=== PATIENT | female | born 1995 | race Caucasian/White ===

== ENCOUNTER 2018-04-25 20:27 | Emergency (ER) | payer OTHER ==
[2018-04-25 20:33] VITALS: BP 119/59; PULSE 100; RESP 18; TEMP 97.4; O2SAT 100
[2018-04-25] MEDS ORDERED: INSU100V2 SQ (20:44)
--- NOTE | 2018-04-25 20:48 | PD ---
HPI Chief Complaint: Complaint Time Seen by Provider: 20:38 Travel History International Travel<30 days: No Contact w/Intl Traveler<30days: No Traveled to known affect area: No History of Present Illness HPI 22-year-old white female presents emergency department with a 3-day history of urinary frequency, urinary pressure followed by right flank tenderness. Patient is insulin-dependent diabetic on insulin pump. She has noted in the last 24 hours that her sugars have been elevated. She denies any fever chills. No nausea or vomiting. No abdominal pain. No vaginal complaints. No abnormal bleeding or discharging. She states that she has a history of irregular periods and has not had one in several months. Symptoms are mild. No alleviating factors. No exacerbating factors. PFSH Past Medical History Narrative Medical IDDM on insulin pump Diabetes: Yes (TYPE 1) Patient Takes Glucophage: No Tetanus Vaccination: < 5 Years ?: Not Past Surgical History Surgical History: No Previous Surgery Social History Alcohol Use: No Tobacco Use: No Substance Use: No Allergies-Medications (Allergen,Severity, Reaction): Coded Allergies: Penicillins (Verified Allergy, Unknown, 04/25/18) Reported Meds & Prescriptions Reported Meds & Active Scripts Active Macrobid (Nitrofurantoin Monoh/Nitrofur Macro) 100 Mg Cap 100 Mg PO BID 7 Days Pyridium (Phenazopyridine HCl) 100 Mg Tab 100 Mg PO Q8H PRN 3 Days Reported Humulin R Inj (Insulin Human Regular) 1,000 Unit/10 Ml Vial 1 Units SQ ONCE Review of Systems General / Constitutional: No: Fever Eyes: No: Visual changes HENT: No: Headaches Cardiovascular: No: Chest Pain or Discomfort Respiratory: No: Shortness of Breath Gastrointestinal: No: Abdominal Pain Genitourinary: Positive: Frequency, Dysuria, Flank Pain, No: Discharge, Dysmenorrhea, Vaginal Bleeding Musculoskeletal: No: Arthralgias, Pain Skin: No Rash Neurologic: No: Weakness Psychiatric: No: Depression Endocrine: No: Polydipsia Hematologic/Lymphatic: No: Easy Bruising Physical Exam Narrative GENERAL: Well-developed, well-nourished in no acute distress. Nontoxic appearing. HEAD: Normocephalic, atraumatic. EYES: Pupils equal round and reactive. Extraocular motions intact. No scleral icterus. No injection or drainage. ENT: TMs clear without erythema. The external auditory canals clear. Nose: clear . Posterior pharynx is pink and moist. No tonsillar edema or exudate. Uvula midline. Airway patent. NECK: Trachea midline.Supple, nontender, moves head freely. No central bony tenderness or spasm. CARDIOVASCULAR: Regular rate and rhythm without murmurs, gallops, or rubs. RESPIRATORY: Clear to auscultation. Breath sounds equal bilaterally. No wheezes , rales, or rhonchi. GASTROINTESTINAL: Abdomen soft, non-tender, nondistended. No hepato-splenomegaly , or palpable masses. No guarding. EXTREMITIES: No clubbing, cyanosis, or edema. No joint tenderness, effusion, or edema noted. BACK: Nontender without deformity or crepitance. No flank tenderness. Data Data Last Documented VS Vital Signs Date Time Temp Pulse Resp B/P (MAP) Pulse Ox O2 Delivery O2 Flow Rate FiO2 04/25/18 20:33 97.4 100 18 119/59 (79) 100 Orders Orders Urinalysis - C+S If Indicated (04/25/18 20:44) Ed Urine Pregnancytest Poc (04/25/18 20:44) Urine Culture (04/25/18 20:47) Nitrofurantoin Monohyd Macrocr (Macrobid (04/25/18 21:45) Ed Discharge Order (04/25/18 21:37) Labs Laboratory Tests Test 04/25/18 20:47 Urine Color LIGHT-YELLOW Urine Turbidity HAZY Urine pH 6.0 Urine Specific [place] 1.004 Urine Protein NEG mg/dL Urine Glucose (UA) NEG mg/dL Urine Ketones NEG mg/dL Urine Occult Blood TRACE Urine Nitrite NEG Urine Bilirubin NEG Urine Urobilinogen LESS THAN 2.0 MG/DL Urine Leukocyte Esterase LARGE Urine RBC 2 /hpf Urine WBC 34 /hpf Urine Bacteria OCC /hpf Microscopic Urinalysis Comment CULTURE INDICATED MDM Medical Decision Making Medical Screen Exam Complete: Yes Emergency Medical Condition: Yes Medical Record Reviewed: Yes Interpretation(s) Laboratory Tests Test 04/25/18 20:47 Urine Color LIGHT-YELLOW Urine Turbidity HAZY Urine pH 6.0 Urine Specific [place] 1.004 Urine Protein NEG mg/dL Urine Glucose (UA) NEG mg/dL Urine Ketones NEG mg/dL Urine Occult Blood TRACE Urine Nitrite NEG Urine Bilirubin NEG Urine Urobilinogen LESS THAN 2.0 MG/DL Urine Leukocyte Esterase LARGE Urine RBC 2 /hpf Urine WBC 34 /hpf Urine Bacteria OCC /hpf Microscopic Urinalysis Comment CULTURE INDICATED Differential Diagnosis Differential diagnosis: UTI, cystitis, pyelonephritis, Narrative Course Patient's glucose is 215 per her monitor. We will obtain a urinalysis and hCG. Patient's urine is positive for UTI. She is given Macrobid p.o. This is UTI Diagnosis Primary Impression: UTI Additional Impression: IDDM Patient Instructions: General Instructions Additional Instructions: Rest. Increase fluids. Macrobid and Pyridium. Monitor blood sugars closely. Follow-up with a primary care doctor in one week. Return to the ER for any problems. Med/Other Pt SpecificInfo: Prescription(s) given Scripts Nitrofurantoin Monohydrate Macrocrystals (Macrobid) 100 Mg Cap 100 MG PO BID for Infection for 7 Days, #14 CAP 0 Refills Prov: Jerardo Jones MD 04/25/18 Phenazopyridine (Pyridium) 100 Mg Tab 100 MG PO Q8H Y for DYSURIA for 3 Days, #9 TAB 0 Refills Prov: Jerardo Jones MD 04/25/18 Disposition: 01 DISCHARGE HOME Condition: Stable Florentino Vega Apr 25, 2018 20:48
[2018-04-25 21:18] LABS: BACTERIA, URINE OCC /hpf; BILIRUBIN, URINE NEG (NEG); BLOOD, URINE TRACE (NEG); GLUCOSE,URINE NEG (NEG); KETONE, URINE NEG (NEG); NITRITE,URINE NEG (NEG); URINE COLOR LIGHT-YELLOW (YELLW/STRAW); URINE LEUKOCYTE ESTERASE LARGE (NEG)
[2018-04-25] MEDS ORDERED: MACR100C2 PO (21:39)
[2018-04-25] MEDS ORDERED: PHEN0.4T PO (21:39)
[2018-04-25] MEDS ORDERED: NITROFURANTOIN MONOHYD MACROCR 100 MG CAP PO ONE (21:45)
== END 2018-04-25 22:06 | disposition home or self-care (01) ==
LOC: NEPD 20:27
DX: N39.0 Urinary tract infection, site not specified (principal); E10.9 Type 1 diabetes mellitus without complications; Z79.4 Long term (current) use of insulin
CPT/HCPCS: 81001; 84703; 86403; 87077; 87086; 87186; 99283

== ENCOUNTER 2018-04-27 17:58 | Emergency (ER) | payer OTHER ==
[~2018-04-27] VITALS: Ht 162.6 cm; Wt 68.0 kg
[~2018-04-27 17:58] MED LIST: INSU100V2 SQ; MACR100C2 PO; PHEN0.4T PO
[2018-04-27 18:01] VITALS: BP 151/67; PULSE 98; RESP 18; TEMP 98.1; O2SAT 98
[2018-04-27] MEDS ORDERED: VANCOMYCIN INJ 1,000 MG in SODIUM CHLOR 0.9% 250 ML INJ 250 ML IV ONE (18:15)
[2018-04-27] MEDS ORDERED: SODIUM CHLOR 0.9% 1000 ML INJ 1,000 ML IV SCH (18:58)
[2018-04-27] MEDS ORDERED: diphenhydrAMINE HCL 50 MG/ML VIAL IV PUSH ONE (19:00)
[2018-04-27] MEDS ORDERED: PROCHLORPERAZINE INJ 10 MG/2 ML VIAL IV PUSH ONE (19:00)
[2018-04-27] MEDS ORDERED: SODIUM CHLORIDE 0.9% FLUSH 10 ML FLUSH IV FLUSH PRN (19:00)
[2018-04-27] MEDS ORDERED: MORPHINE SULFATE 4 MG/ML INJ IV PUSH ONE (19:00)
--- NOTE | 2018-04-27 19:13 | PD ---
HPI . Back pain Chief Complaint: Complaint Time Seen by Provider: 18:08 Travel History International Travel<30 days: No Contact w/Intl Traveler<30days: No Traveled to known affect area: No History of Present Illness HPI Patient presents complaining with back pain, abdominal pain, frequency of urination and urgency of urine. She was seen here on 04/25 for same. She had a urinalysis done at that time which was consistent with urinary tract infection. She was discharged with a prescription for Macrobid. She states that she has been taking the medication but is not getting any better. She further states that she was diagnosed with urinary tract infection in [place] a couple of weeks ago. She was given an unknown antibiotic at that time and her symptoms improved. The symptoms recurred about 5 days ago. She denies any SWABBER problems such as abnormal bleeding, vaginal discharge or dyspareunia. This patient is an insulin-dependent diabetic. She reports that she has had urinary tract infections in the past which have presented similarly to her symptoms today. PFSH Past Medical History Diabetes: Yes Patient Takes Glucophage: No Medical other: Yes (insulin pump, lower right abdomen) ?: Not LMP: DEC 2017 Past Surgical History Surgical History: No Previous Surgery Social History Alcohol Use: No Tobacco Use: No Substance Use: No Allergies-Medications (Allergen,Severity, Reaction): Coded Allergies: Penicillins (Verified Allergy, Unknown, 04/25/18) Reported Meds & Prescriptions Reported Meds & Active Scripts Active Macrobid (Nitrofurantoin Monoh/Nitrofur Macro) 100 Mg Cap 100 Mg PO BID 7 Days Pyridium (Phenazopyridine HCl) 100 Mg Tab 100 Mg PO Q8H PRN 3 Days Reported Humulin R Inj (Insulin Human Regular) 1,000 Unit/10 Ml Vial 1 Units SQ ONCE Review of Systems Except as stated in HPI: all other systems reviewed are Neg General / Constitutional: No: Fever, Chills Gastrointestinal: No: Nausea, Vomiting Genitourinary: Positive: Urgency, Frequency, Pelvic Pain Musculoskeletal: Positive: Pain (Back pain) Physical Exam Narrative GENERAL: Healthy-appearing 22-year-old who is in no acute distress. SKIN: warm/dry. Normal color and turgor. HEAD: Normocephalic. Atraumatic. EYES: Pupils equal and round. Extraocular movements are intact. ENT: Mucous membranes pink and moist. NECK: Supple. Full range of motion without pain.. CARDIOVASCULAR: Regular rate and rhythm. RESPIRATORY: No accessory muscle use. Normal sats and normal respiratory rate. GASTROINTESTINAL: Abdomen soft. Diffuse mid abdominal tenderness. Bowel sounds present. Nondistended. No guarding or rebound. MUSCULOSKELETAL: No obvious deformities. Normal muscle tone. Diffuse low back tenderness. No real CVA tenderness. NEUROLOGICAL: Awake and alert. No obvious cranial nerve deficits. Motor grossly within normal limits. Normal speech. PSYCHIATRIC: Appropriate mood and affect; insight and judgment normal. Data Data Last Documented VS Vital Signs Date Time Temp Pulse Resp B/P (MAP) Pulse Ox O2 Delivery O2 Flow Rate FiO2 04/27/18 18:01 98.1 98 18 151/67 (95) 98 Orders Orders Vancomycin Inj (Vancomycin Inj) (04/27/18 18:15) Basic Metabolic Panel (Bmp) (04/27/18 18:58) Complete Blood Count With Diff (04/27/18 18:58) Lipase (04/27/18 18:58) Iv Access Insert/Monitor (04/27/18 18:58) Ecg Monitoring (04/27/18 18:58) Oximetry (04/27/18 18:58) Sodium Chlor 0.9% 1000 Ml Inj (Ns 1000 M (04/27/18 18:58) Sodium Chloride 0.9% Flush (Ns Flush) (04/27/18 19:00) Diphenhydramine Inj (Benadryl Inj) (04/27/18 19:00) Prochlorperazine Inj (Compazine Inj) (04/27/18 19:00) Morphine Inj (Morphine Inj) (04/27/18 19:00) Labs Laboratory Tests Test 04/27/18 19:15 White Blood Count 14.4 TH/MM3 Red Blood Count 5.13 MIL/MM3 Hemoglobin 13.3 GM/DL Hematocrit 41.2 % Mean Corpuscular Volume 80.2 FL Mean Corpuscular Hemoglobin 25.8 PG Mean Corpuscular Hemoglobin Concent 32.2 % Red Cell Distribution Width 13.6 % Platelet Count 320 TH/MM3 Mean Platelet Volume 7.9 FL Neutrophils (%) (Auto) 77.0 % Lymphocytes (%) (Auto) 13.7 % Monocytes (%) (Auto) 7.5 % Eosinophils (%) (Auto) 1.4 % Basophils (%) (Auto) 0.4 % Neutrophils # (Auto) 11.1 TH/MM3 Lymphocytes # (Auto) 2.0 TH/MM3 Monocytes # (Auto) 1.1 TH/MM3 Eosinophils # (Auto) 0.2 TH/MM3 Basophils # (Auto) 0.1 TH/MM3 CBC Comment DIFF FINAL Differential Comment Blood Urea Nitrogen 10 MG/DL Creatinine 0.72 MG/DL Random Glucose 181 MG/DL Calcium Level 9.5 MG/DL Sodium Level 139 MEQ/L Potassium Level 4.0 MEQ/L Chloride Level 102 MEQ/L Carbon Dioxide Level 26.1 MEQ/L Anion Gap 11 MEQ/L Estimat Glomerular Filtration Rate 103 ML/MIN Lipase 46 U/L MDM Medical Decision Making Medical Screen Exam Complete: Yes Emergency Medical Condition: Yes Medical Record Reviewed: Yes (Patient was seen here on 04/25. She had a urine culture which is positive for coagulase-negative Staphylococcus aureus. Sensitivities are not yet back.) Differential Diagnosis Differential diagnosis of abdominal pain includes but is not limited to gastritis, pancreatitis, hepatitis, gastroenteritis, constipation, urinary retention, peptic ulcer disease, diverticulitis or appendicitis Narrative Course This is a 22-year-old diabetic who presents with abdominal pain and back pain associated with frequency and urgency. She does not have any SWABBER symptoms. Her most likely diagnosis is the UTI. Urine culture was done on 04/25 which is growing coagulase-negative Staphylococcus aureus. It is probably not sensitive to Macrobid. She will be given a dose of IV vancomycin. I will check some basic labs. She did not have labs done on 04/25 other than the UA. CBC & BMP Diagram 04/27/18 19:15 Calcium Level 9.5 This patient does have a leukocytosis. However, her abdominal exam is benign. She seems to be a reliable patient. I will discharge her to home with a prescription for Bactrim and with instructions to return if she is not rapidly improving within the next 24-48 hours. Diagnosis Primary Impression: Urinary tract infection Qualified Codes: N39.0 - Urinary tract infection, site not specified Patient Instructions: General Instructions, Urinary Tract Infection in Women ( [place]) Med/Other Pt SpecificInfo: Prescription(s) given Scripts Sulfamethoxazole-Trimethoprim (Bactrim DS) 800-160 Mg Tab 1 TAB PO BID for Infection, #20 TAB 0 Refills Prov: Adela Prince MD 04/27/18 Disposition: 01 DISCHARGE HOME Condition: Stable Adela Prince MD Apr 27, 2018 19:13
[2018-04-27 19:28] LABS: AUTOMATED NEUTROPHIL # 11.1 TH/MM3 (1.8-7.7); BASOPHIL # 0.1 TH/MM3 (0-0.2); BASOPHIL % 0.4 % (0.0-2.0); EOSINOPHIL # 0.2 TH/MM3 (0-0.4); EOSINOPHIL % 1.4 % (0.0-4.0); HEMATOCRIT 41.2 % (35.0-46.0); HEMOGLOBIN 13.3 GM/DL (11.6-15.3); LYMPH % 13.7 % (9.0-44.0); MEAN CELL VOLUME 80.2 FL (80.0-100.0); MEAN CORPUSCULAR HEMOGLOBIN 25.8 PG (27.0-34.0); MEAN CORPUSCULAR HGB CONC 32.2 % (32.0-36.0); MEAN PLATELET VOLUME 7.9 FL (7.0-11.0); MONO % 7.5 % (0.0-8.0); MONOCYTE # 1.1 TH/MM3 (0-0.9); PLATELET COUNT 320 TH/MM3 (150-450); RED BLOOD COUNT 5.13 MIL/MM3 (4.00-5.30); RED CELL DISTRIBUTION WIDTH 13.6 % (11.6-17.2); WHITE BLOOD COUNT 14.4 TH/MM3 (4.0-11.0)
[2018-04-27 19:52] LABS: BICARBONATE 26.1 MEQ/L (21.0-32.0); CALCIUM 9.5 MG/DL (8.5-10.1); CREATININE 0.72 MG/DL (0.50-1.00)
[2018-04-27] MEDS ORDERED: BACT800T5 PO (20:56)
== END 2018-04-27 21:44 | disposition home or self-care (01) ==
LOC: NEPD 17:58
DX: N39.0 Urinary tract infection, site not specified (principal); D72.829 Elevated white blood cell count, unspecified; E11.9 Type 2 diabetes mellitus without complications; Z87.440 Personal history of urinary (tract) infections; Z79.4 Long term (current) use of insulin; Z88.0 Allergy status to penicillin
CPT/HCPCS: 80048; 83690; 85025; 96374; 96375; 99284; J0780; J1200; J2270; J3370; J7030; J7050